=== PATIENT | male | born 1945 | race Caucasian/White ===

== ENCOUNTER 2017-03-18 08:20 | Day surgery (SDC) | payer OTHER ==
[~2017-03-18] VITALS: Ht 177.8 cm; Wt 69.9 kg
[~2017-03-18 08:20] MED LIST: ACET325T33 PO; AMIO200T2 PO; ATOR40TA68 PO; BEN25 PO; BISA10SU58 PR; COU5 PO; FAMO40TA52 PO; FER325 PO; HYDR-3498 PO; INSU100V23 SC; IPRA3AMP HHN; IPRA3AMP INHALATION; MAG355OR15 PO; MAGN400O4 PO; MULT-552 PO; NA P118E PR; OXYC-481 PO; TAMS-14 PO; ZOLP5TAB PO
[2017-03-18 09:07] VITALS: Ht 177.8 cm; Wt 69.9 kg
[2017-03-18] MEDS ORDERED: VIT D3 (09:23)
[2017-03-18] MEDS ORDERED: METF500T PO (09:23)
[2017-03-18] MEDS ORDERED: LEVE100S PO (09:23)
[2017-03-18] MEDS ORDERED: NITR0.4T32 SL (09:23)
[2017-03-18] MEDS ORDERED: LISI20TA11 PO (09:23)
[2017-03-18] MEDS ORDERED: APIX2.5T PO (09:23)
[2017-03-18] MEDS ORDERED: SOTA80TA PO (09:23)
[2017-03-18] MEDS ORDERED: NARA1TAB PO (09:23)
[2017-03-18] MEDS ORDERED: METO1TAB PO (09:23)
--- NOTE | 2017-03-18 10:14 | OPPN ---
Date/Time of Note Date/Time of Note DATE: 03/18/17 TIME: 10:11 Proc Note GI Procedure Date 03/18/17 Pre-procedure Diagnosis r/o colon polyps Post-procedure Diagnosis hemorrhoids Procedure Performed: Colonoscopy Surgeon see signature line Urologist none Anesthesia Type: moderate sedation Tourniquet Time none EBL none Transfusion required none Biopsy 1: none Grafts/Implants none Tubes/Drains none Complication(s) none Pt Condition post procedure: stable Indications: screening/surveillance Operative\Procedure Findings colonoscopy hemorrhoids Procedure Description modv sedation hemorrhoids LEODAN PATTON MD Mar 18, 2017 10:14
[2017-03-18] MEDS ORDERED: MIDAZOLAM 1 MG/ML 2 ML INJ ONE (10:24)
[2017-03-18] MEDS ORDERED: FENTAnyl 50 MCG/ML VIAL ONE (10:24)
[2017-03-18 10:40] VITALS: BP 140/88; RESP 14
--- NOTE | 2017-03-22 04:03 | GILP ---
DATE OF PROCEDURE: PROCEDURE: Screening colonoscopy to rule out colon polyps. POSTOPERATIVE DIAGNOSIS: Minimal to moderate degree of external hemorrhoids. DESCRIPTION OF PROCEDURE: After the informed written consent was obtained, the patient was asked to lie on the left lateral side. Intravenous anesthesia was given as noted in the nursing notes with fentanyl and Versed. When the patient became somnolent, the Olympus video colonoscope was introduce d into the rectum and scope was advanced all the way to the cecum. Entire colon was examined frank copeland which appeared normal. On the way out, examination was carried out. No additional abnormaliti es detected and the procedure was terminated. PLAN: Recommend a high-fiber diet and repeat colonoscopy in 10 years. Dictated By: LEODAN BABCOCK/SARITA Conf#: [id number] DID#: [id number]
== END 2017-03-18 11:45 | disposition home or self-care (01) ==
LOC: GIL 08:20
PROVIDERS: ATTEND Internal Medicine Gastroenterology
DX: Z12.11 Encounter for screening for malignant neoplasm of colon (principal); E11.9 Type 2 diabetes mellitus without complications; Z86.73 Personal history of transient ischemic attack (TIA), and cerebral infarction without residual deficits; I10 Essential (primary) hypertension; K64.4 Residual hemorrhoidal skin tags
CPT/HCPCS: 45378; 82962; J2250; J3010